=== PATIENT | male | born 1970 | race Caucasian/White ===

== ENCOUNTER 2019-08-08 16:20 | Observation (INO) | payer SELFPAY ==
[2019-08-08] VITALS (10 sets, daily range): BP systolic 99–136; BP diastolic 58–87; PULSE 58–82; RESP 12–18; TEMP 35.6–36.9; O2SAT 94–98
--- NOTE | 2019-08-08 16:21 | W.ED.GENAD ---
Discharge Plan Disposition Patient Disposition: [facility] INPATIENT Condition: Good Discharge Details Chief Complaint: ThroatFB Clinical Impression: Esophageal obstruction due to food impaction Primary Care Provider: Sepideh Mcpherson ED Provider: Ja Solomon Home Meds and New Rx's Prescriptions: No Action Vitamin C Powder 1 pwd PO DAILY RF: 0 Medical Decision Making This is a pleasant 49-year-old male who presents today for suspected esophageal impaction/foreign body. He was eating chicken yesterday and it felt like it got stuck. He has tried soda among many other things but cannot keep anything down it immediately comes back up. He denies any severe pain but does admit to mild irritation in the suprasternal region. He denies any hemoptysis. He has had symptoms like this in the distant past but they have all resolved on their own. He denies any history of cancer or malignancy. Physical exam is notably unremarkable. Vital signs stable. Signs and symptoms are concerning for esophageal impaction. We will start with glucagon and effervescent crystals. If this fails we will contact surgery for comanagement. 5:51 PM Reassessment the patient has had no improvement of symptoms with effervescent crystals or the glucagon. He did get slightly more nauseous, Zofran was given. He has had he no improvement especially with the treatment. Dr. Jefferson has come and assess the patient. Patient will be brought to the OR for definitive management. I have extensively reviewed the treatment plan with the patient. I have addressed all patient concerns at this time. I have also discussed the plan with the admitting physician and they agree with the current assessment and plan and have agreed to assume responsibility for the patient. All parties demonstrate verbal understanding and agreement with our assessment and plan at this time. HPI General Date/Time Provider Initiated Documentation: 08/08/19 16:20. HPI Narrative: This is a very pleasant 49-year-old male with no significant past medical history who presents today for evaluation of esophageal foreign body. Patient states that yesterday he was eating some chicken and felt like it got stuck, since then he has not been able to eat or drink anything as it comes back up immediately. The patient states that this is happened a few times in the very distant past, but he was always able to fix it on its own with soda or other help. He is tried these things at home but it has had no improvement for his symptoms. Patient states that it feels like it is in the center of his neck just above his sternum. He denies any chest pain shortness of breath hematemesis or other complaints. He denies any other modifying factors. Related Data Home Medications Medication Instructions Recorded Confirmed ascorbic acid (vitamin C) [Vitamin 1 pwd PO DAILY 08/08/19 08/08/19 C] Allergies Allergy/AdvReac Type Severity Reaction Status Date / Time hornet venom AdvReac Intermediate swelling Unverified 08/08/19 16:30 next day then resolves Review of Systems All systems reviewed & are unremarkable except as noted in HPI and below PFSH Medical History Lactose intolerance Social History Smoking/Tobacco Use Status: Former Tobacco Use Alcohol Intake: current Alcohol Intake frequency: holidays/special occasions only Alcohol type: beer Drug use: Never Details: quit chew 15-20 yrs ago Do you feel safe at home: Yes Do you feel safe in your relationship?: Yes Exam Narrative Exam Narrative: 1.Const: Well-nourished, Well-developed, appearing stated age 2.Eyes: PERRL, no conjunctival injection, and symmetrical lids. 3.ENT: Atraumatic external nose and ears. Moist MM. Neck: Symmetric, trachea midline, No thyromegaly. No abnormality on exam otherwise. 4.CVS: +S1/S2, No murmurs or gallops. Peripheral pulses 2+ and equal in all extremities. Brisk capillary refill in all extremities. No stridor. 5.RESP: Unlabored respiratory effort. Clear to auscultation bilaterally. No wheezes rales or rhonchi 6.GI: Soft, Nontender/Nondistended, No hepatosplenomegaly. No guarding or rebound. 7.MSK: Normocephalic/Atraumatic, Extremities w/o deformity or ttp No cyanosis or clubbing, Normal movement of all extremities 8.Skin: Warm, Dry. No rashes or lesions. 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 Sensation grossly intact, no focal neurologic deficits. 10.Psych: (AAO) x3. Appropriate mood and affect
[2019-08-08] MEDS: Potassium Bicarbonate/Cit AC 25 MEQ TABLET.EFF PO (16:39)
[2019-08-08 17:03] LABS: Abs Immature Grans 0.01 k/cumm (0.0-0.09); Absolute Basophil Count 0.03 k/cumm (0.0-0.2); Absolute Eosinophil Count 0.14 k/cumm (0.0-0.7); Absolute Lymphocyte Count 2.06 k/cumm (1.2-3.4); Absolute Monocyte Count 0.88 k/cumm (0.11-0.7); Basophils % 0.3; Eosinophils % 1.6; HGB 15.4 g/dL (13.5-17.5); Immature Grans % 0.1; Lymphocytes % 22.8; Mean Corpuscular Hemoglobin 32.9 pg (27.0-33.0); Mean Platelet Volume 9.9 fL (8.0-11.0); Monocytes % 9.8; Neutrophils % 65.4; Platelet Count 248 x1000/uL (130-400); RBC 4.68 m/cumm (4.50-6.00); RBC Distribution Width 12.5 % (11.8-14.1); White Blood Cell Count 9.02 k/cumm (4.4-10.8)
[2019-08-08] MEDS: Ondansetron 4 MG/2 ML VIAL (17:13)
[2019-08-08 17:23] LABS: Anion Gap 12.1 mmol/L (3-11); BUN 19 mg/dL (7-18); CO2 25.9 mmol/L (21.0-32.0); CREATININE 0.89 mg/dL (0.70-1.30); Calcium 9.6 mg/dL (8.5-10.1); Chloride 106 mmol/L (98-107); Glucose 88 mg/dL (74-106); Sodium 144 mmol/L (136-145)
[2019-08-08 17:24] LABS: Potassium 4.4 mmol/L (3.5-5.1)
--- NOTE | 2019-08-08 18:13 | HPE_ITS ---
Date of service: 08/08/19 Time of Service: 18:13 Assessment and Plan Assessment and plan (1) Esophageal foreign body: Status: Acute Assessment and plan: Informed consent is obtained for the procedural (explained in simple layman's terms that the pt and/or family could understand) explaining risks vs benefits and alternatives to the procedure and consequences if we do not do the procedure and need/rational for the procedure. Risks include but are not limited to: bleeding, infection, perforation of esophagus, stomach, colon, small intestines, bronchus or trachea, or PTX. This would necessitate emergency surgery to repair the damage w/ possible ostomy; and other associated complications w/ the required surgery. Also complications of anesthesia including aspiration, FL/CVA/ History of Present Illness Consults Consult date: 08/08/19 Requesting physician: Jd Solomon Narrative: pt is not able to swallow secretions. Has a foreign body sensation. Has been there since last night at dinner. cnan not swallow secretions or water. Has problems w/ choking w/ eating. has never had to have a retrieval before. does not describes a reflux of GERD. no etoh. 2-3coffee/day no soda. no ETOH. remote hx of chewing. not smoker. no prior XRT or neck Sx or trauma. Has had a peritonsilar abscess in remote past. no problems w/ anesthesia. 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) Surgical History (Updated 08/08/19 @ 18:19 by Mona Jefferson DO) H/O peritonsillar abscess drainage (Acute) Social History Smoking/Tobacco Use Status: Former Tobacco Use Alcohol Intake: current Alcohol Intake frequency: holidays/special occasions only Alcohol type: beer Drug use: Never Details: quit chew 15-20 yrs ago Do you feel safe at home: Yes Do you feel safe in your relationship?: Yes Meds Home Medications and Allergies Home Medications Medication Instructions Recorded Confirmed Type ascorbic acid (vitamin C) [Vitamin 1 pwd PO DAILY 08/08/19 08/08/19 History C] Allergies Allergy/AdvReac Type Severity Reaction Status Date / Time hornet venom AdvReac Intermediate swelling Unverified 08/08/19 16:30 next day then resolves Exam Const General: cooperative, healthy appearing, comfortable, no acute distress, well developed and well groomed Nutritional Appearance: average body habitus and well nourished Orientation: alert, awake and oriented x3 [facility] Head: normal to inspection, normocephalic and atraumatic Ears: hearing grossly normal bilaterally and external ears normal General nose exam: external nose normal Face and sinus: normal facial exam and sinuses nontender Mouth: oral mucosae normal, lip normal, tongue normal and moist mucous membranes Teeth and gingiva: dentition normal Other: Dentition intact. Patient cannot swallow his own secretions. There is no foreign body in the esophagus apparent Eyes General: appearance normal, both eyes and all related structures Conjunctivae: conjunctivae normal Sclera: sclerae normal Pupils: PERRL Neck Neck: normal visual inspection and full ROM Chest Chest: normal inspection of the chest Resp Effort & Inspection: normal respiratory effort, able to speak in complete sentences, no cough, no nasal flaring, not tachypneic and no use of accessory muscles Auscultation: clear to auscultation bilaterally, no rales, no rhonchi and no wheezes Cardio Jugular venous pressure: no JVD Rate: regular rate Rhythm: regular rhythm GI Inspection: normal to inspection, no edema and non-distended Palpation: soft, no masses, nontender and No ascites Auscultation: normal bowel sounds Skin General skin exam: no rashes or lesions noted Trauma: no lacerations or abrasions Neuro General: alert, oriented x3, oriented, gait normal, moves all extremities, no focal motor deficits and CN's II-XI intact bilaterally Cognition: normal cognition Speech: speech normal Gait: normal gait Motor: muscle tone normal throughout Extrem General: normal to inspection, full ROM and no clubbing, cyanosis or edema Psych Appearance: grossly normal and well kempt Mental Status: mental status grossly normal Speech and Movement: speech and movement normal Affect: normal affect Results Labs Result diagrams: 08/08/19 16:45 08/08/19 16:45 Labs: Laboratory Results - last 24 hr 08/08/19 12 16:45 16:45 WBC 9.02 RBC 4.68 Hgb 15.4 Hct 44.0 MCV 94.0 MCH 32.9 MCHC 35.0 RDW 12.5 Plt Count 248 MPV 9.9 Immature Gran % 0.1 Neutrophils % 65.4 Lymphocytes % 22.8 Monocytes % 9.8 Eosinophils % 1.6 Basophils % 0.3 Absolute Neutrophils 5.90 Absolute Lymphocytes 2.06 Absolute Monocytes 0.88 H Absolute Eosinophils 0.14 Absolute Basophils 0.03 Sodium 144 Potassium 4.4 Chloride 106 Carbon Dioxide 25.9 Anion Gap 12.1 H BUN 19 H Creatinine 0.89 Estimated GFR/1.73 m2 >= 60.00 Glucose 88 Calcium 9.6 Last Vital Signs Temp 36.8 C 08/08/19 16:25 Pulse 78 08/08/19 16:25 Resp 12 08/08/19 16:25 BP 136/87 08/08/19 16:25 Pulse Ox 97 08/08/19 16:25
[2019-08-08] MEDS: Lactated Ringers 1,000 ML 30 ML IV ×2 (18:26→19:28)
--- NOTE | 2019-08-08 19:00 | ESO_PTH ---
PATIENT: RODERICK AKINS LOC: U#:[id number] AGE/SX: 49/M ROOM: MS.229 RE08/08/[address]: Mona Jefferson : 1970 BED: B DIS: 08/08/2019 SPEC #: [id number] RECD: 08/09/19 12:19 STATUS: DALJIT REQ #: [id number] CARLENE: 08/08/19 19:[address]: Mona Jefferson DEPT: Surgical Specimen RECD BY: Carole Huffman ENTERED: 08/09/19 12:20 SP TYPE: Suo ANGELA DR: Sepideh Mcpherson MD Tissues: 1 - ESOPHAGUS BIOPSY 2 - STOMACH BIOPSY Procedures: GROSS AND MICRO LEVEL 4 Comments: [id number]
--- NOTE | 2019-08-08 19:07 | W.PM.ENDDOP ---
Date of service: 08/08/19 Time of Service: 19:07 Endoscopy Report DATE OF PROCEDURE: 08/08/19 PRE-OP DIAGNOSIS: esophageal foreign body POST-OP DIAGNOSIS: same PROCEDURE: removal SURGEON: Mona Jefferson ANESTHESIA: GETA ESTIMATED BLOOD LOSS: 1 PATHOLOGY: other COMPLICATIONS: None DISPOSITION: floor PROCEDURE DESCRIPTION: .dic
--- NOTE | 2019-08-08 19:08 | DSE_ITS ---
Date of service: 08/08/19 Time of Service: 19:09 DS: Diagnosis Discharge Diagnosis (1) Esophageal foreign body: Status: Acute Discharge Plan Disposition Patient Disposition: HOME Condition: Good Discharge Details Chief Complaint: ThroatFB Clinical Impression: Esophageal obstruction due to food impaction Reason For Visit: esophageal foreign body Attending Provider: Mona Jefferson Primary Care Provider: Sepideh Mcpherson ED Provider: Ja Solomon Home Meds and New Rx's Prescriptions: Discontinued Vitamin C Powder 1 pwd PO DAILY RF: 0 Discharge Instructions Additional Instructions: Findings: esophageal foreign body adn bx Liquids only for 24 hrs will have a sore throat cephacol spray and/or cough drops as needed. Follow up:Dr. Jefferson in 1-2 wks call [phone] during normal business to [email or web address]. Please call if you develop: fevers >101.5 Nausea or Vomiting Abdominal pain that is not transient DAY SURGERY UNIT POST COLONOSCOPY INSTRUCTIONS 1. Because there will be medication in your system for the next 24 hours, you may feel a little sleepy. Your coordination will be affected. Therefore: a. Do not drive or operate dangerous equipment for 24 hours. b. Do not drink alcohol beverages for 24 hours (not even beer). c. Plan to go home and rest for the day. 2. Generally there are no restrictions on your activity after a day or so has gone by, but you may feel a bit fatigued for a few days. 3 After you arrive home you may have a light meal and return to a normal diet as you can tolerate it without feeling sick to your stomach. 4. After surgery, you may feel pain or discomfort. This should be only transient, but if it persists please contact your doctor. 5. If there are any questions regarding the findings of your procedure, please feel free to contact your doctor. 6. If you are unable to contact your doctor with a problem, contact the hospital at [phone]. 7. Continue all your regular medications unless directed otherwise. I understand the above instructions and have no questions. Signature of Patient or Responsible Adult Escort Date/Time Name of Responsible Adult Escort Signature of Nurse Date/Time Activity:: clear liquids only x 24 hrs Diet:: No strenuous activity or lifting over 20 pounds x 24 hours DS: Summary Status at Discharge Functional status at discharge: independent ambulation Overall status at discharge: patient is back to baseline Mental Status: mental status grossly normal Speech and Movement: speech and movement normal Mood: congruent mood Affect: normal affect Exam Psych Mental Status: mental status grossly normal Speech and Movement: speech and movement normal Mood: congruent mood Affect: normal affect DS: Data Vitals/I&O Vitals and I&O: Vital Signs Temperature 36.8 C 08/08/19 18:23 Temperature Source Skin 08/08/19 16:25 Pulse 78 08/08/19 18:23 Respiratory Rate 12 08/08/19 18:23 Respiratory Effort Non-Labored 08/08/19 18:23 Respiratory Pattern Normal 08/08/19 18:23 Blood Pressure 136/87 08/08/19 18:23 Blood Pressure Position Sitting 08/08/19 16:25 Pulse Oximetry 97 08/08/19 18:23 Oxygen Delivery Method Room Air 08/08/19 16:25 Oxygen Flow Rate 0 08/08/19 16:25 Pain Level 0 08/08/19 18:23 Intake & Output 08/07/19 08/08/19 08/08/19 23:59 11:59 23:59 Weight 81.647 kg Data Completed and Pending Labs on day of discharge: Labs from last 24 hours 08/08/19 08/08/19 16:45 16:45 WBC 9.02 RBC 4.68 Hgb 15.4 Hct 44.0 MCV 94.0 MCH 32.9 MCHC 35.0 RDW 12.5 Plt Count 248 MPV 9.9 Immature Gran % 0.1 Neutrophils % 65.4 Lymphocytes % 22.8 Monocytes % 9.8 Eosinophils % 1.6 Basophils % 0.3 Absolute Neutrophils 5.90 Absolute Lymphocytes 2.06 Absolute Monocytes 0.88 H Absolute Eosinophils 0.14 Absolute Basophils 0.03 Sodium 144 Potassium 4.4 Chloride 106 Carbon Dioxide 25.9 Anion Gap 12.1 H BUN 19 H Creatinine 0.89 Estimated GFR/1.73 m2 >= 60.00 Glucose 88 Calcium 9.6 PFSH Medical History Esophageal foreign body (Acute) Lactose intolerance 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
--- NOTE | 2019-08-09 12:20 | ENDO_ITS ---
DATE OF PROCEDURE: August 08, 2019 PREOPERATIVE DIAGNOSIS: Esophageal foreign body. POSTOPERATIVE DIAGNOSIS: Same PROCEDURE: EGD and esophageal foreign body removal and biopsy. SURGEON: Mona Jefferson D.O. ANESTHESIA: General. ESTIMATED BLOOD LOSS: 2 cc's HISTORY: Mr. Aparicio is a 49-year-old male [facility] compatible with esophageal foreign body. He was taken to the OR for EGD and foreign body removal. Informed consent was obtained explaining risks and benefits of the procedure, including but not limited to bleeding, infection, perforation, aspiration and complications from the anesthesia. PROCEDURE: The patient was brought to the operative suite. Anesthesia is administered per the Department of Anesthesia. A time-out was performed. A previously-lubricated Olympus scope was inserted into the oropharynx and passed down into the esophagus. The upper esophagus was normal. The food bolus is at the lower esophageal sphincter. We used a combination of basketing and piecemeal picking to remove the foreign body. Once the obstruction is removed, I am able to pass the scope into the stomach. The stomach and esophagus appeared grossly normal. There does not appear to be any obstruction. At the GE junction a biopsy is taken is taken of the GE junction and the cardia portion of the stomach. All specimens are retrieved. There is no bleeding noted. The scope is then withdrawn. The patient tolerated the procedure well without complications and transferred to the recovery room in stable condition. He will be discharged home tonight. Liquids for 24 hours. He will follow-up in my office in 1 to 2 weeks and we will review the biopsy results and see if proton pump inhibitors are indicated. Exam tonight grossly appears normal and he should focus on eating slower with purpose and alternating liquids and solids. Thank you for allowing me to participate in the care of this patient. cc: Sepideh Mcpherson M.D.
== END 2019-08-08 22:16 | disposition home or self-care (01) ==
LOC: ER 17:55 → DSU 18:21 → MS 20:14
PROVIDERS: Admitting Provider Surgery; Emergency Provider Student in an Organized Health Care Education/Training Program; PCP Internal Medicine; Visit Provider Surgery
PROC: 0DC68ZZ Extirpation of Matter from Stomach, Via Natural or Artificial Opening Endoscopic (ICD-10-PCS; CPT 43247; principal; 2019-08-08 18:00)
DX: T18.108A Unspecified foreign body in esophagus causing other injury, initial encounter (principal); K22.2 Esophageal obstruction; K21.0 Gastro-esophageal reflux disease with esophagitis
CPT/HCPCS: 43239; 43247; 36415; 36416; 80048; 82962; 88305; 96374; 96375; 99222; 99238; 99284; 85025; J1610; J2405